=== PATIENT | female | born 1955 | race Caucasian/White ===

== ENCOUNTER 2020-05-11 12:29 | Outpatient (CLI) | payer OTHER ==
[~2020-05-11 12:29] MED LIST: HYDR-5191 PO; LISI-420 PO
== END 2020-05-11 21:02 | disposition home or self-care (01) ==
LOC: MRD 12:29
DX: M51.37 Other intervertebral disc degeneration, lumbosacral region (principal); M47.817 Spondylosis without myelopathy or radiculopathy, lumbosacral region; M25.552 Pain in left hip
CPT/HCPCS: 72110; 73502